=== PATIENT | female | born 1945 | race Caucasian/White ===

== ENCOUNTER → 2018-10-26 | Outpatient (CLI) | payer OTHER ==
[~2018-10-26] MED LIST: EFFEXOR XR75 MG PO; FLEXERIL PO; LIPITOR 20 MG T20 M1 PO; PERCOCET 5-3251 EACH PO; TRAZODONE HCL100 MG PO
== END ==
LOC: CAT 09:47
DX: G23.8 Other specified degenerative diseases of basal ganglia (principal); G45.9 Transient cerebral ischemic attack, unspecified

== ENCOUNTER → 2018-11-10 | Outpatient (CLI) | payer OTHER ==
[2018-11-10 12:30] LABS: CREATININE 0.7 mg/dL (0.6-1.0)
== END ==
LOC: MRI 10:50
PROVIDERS: Nurse Practitioner
DX: I67.82 Cerebral ischemia (principal); G45.9 Transient cerebral ischemic attack, unspecified; J32.0 Chronic maxillary sinusitis; R90.82 White matter disease, unspecified

== ENCOUNTER → 2019-11-15 | Outpatient (CLI) | payer OTHER | LOC: SJCVCIMAG 08:07 | PROVIDERS: ATTEND Nurse Practitioner | DX: I08.2 Rheumatic disorders of both aortic and tricuspid valves (principal); R55 Syncope and collapse ==

== ENCOUNTER → 2019-11-16 | Outpatient (CLI) | payer OTHER | LOC: SJCVCIMAG 10:23 → SJCVC 10:23 | PROVIDERS: ATTEND Internal Medicine Cardiovascular Disease | DX: I65.23 Occlusion and stenosis of bilateral carotid arteries (principal); R94.31 Abnormal electrocardiogram [ECG] [EKG]; I35.0 Nonrheumatic aortic (valve) stenosis; E78.00 Pure hypercholesterolemia, unspecified; M32.9 Systemic lupus erythematosus, unspecified; Z79.899 Other long term (current) drug therapy ==

== ENCOUNTER → 2019-11-28 | Outpatient (CLI) | payer OTHER | LOC: HYPER 11:03 | PROVIDERS: ATTEND Emergency Medicine | DX: S00.83XD Contusion of other part of head, subsequent encounter (principal); M32.8 Other forms of systemic lupus erythematosus; E78.2 Mixed hyperlipidemia; R55 Syncope and collapse; F41.9 Anxiety disorder, unspecified; F32.9 Major depressive disorder, single episode, unspecified; Z85.3 Personal history of malignant neoplasm of breast; W19.XXXA Unspecified fall, initial encounter; Y93.89 Activity, other specified; Y92.89 Other specified places as the place of occurrence of the external cause; Y99.8 Other external cause status ==

== ENCOUNTER → 2019-12-14 | Outpatient (CLI) | payer OTHER | LOC: SJCVCIMAG 06:55 | PROVIDERS: ATTEND Internal Medicine Cardiovascular Disease | DX: I49.1 Atrial premature depolarization (principal); R55 Syncope and collapse; I35.0 Nonrheumatic aortic (valve) stenosis ==

== ENCOUNTER → 2020-10-17 | Outpatient (CLI) | payer OTHER | LOC: SJCVCIMAG 09:08 | PROVIDERS: ATTEND Internal Medicine Cardiovascular Disease | DX: R94.31 Abnormal electrocardiogram [ECG] [EKG] (principal); I08.0 Rheumatic disorders of both mitral and aortic valves; I49.1 Atrial premature depolarization; E78.00 Pure hypercholesterolemia, unspecified; M32.9 Systemic lupus erythematosus, unspecified; E78.5 Hyperlipidemia, unspecified; Z85.3 Personal history of malignant neoplasm of breast; Z72.89 Other problems related to lifestyle; Z79.899 Other long term (current) drug therapy ==

== ENCOUNTER 2021-05-17 11:43 | Emergency (ER) | payer OTHER ==
[~2021-05-17] VITALS: Ht 157.5 cm; Wt 49.9 kg
[2021-05-17 12:07] VITALS: BP 144/98
== END 2021-05-17 13:02 | disposition home or self-care (01) ==
LOC: ER 11:43
DX: U07.1 COVID-19 (principal); L93.0 Discoid lupus erythematosus; Z85.3 Personal history of malignant neoplasm of breast; Z98.890 Other specified postprocedural states